=== PATIENT | female | born 1970 | race Caucasian/White ===

== ENCOUNTER 2017-12-28 16:49 | Emergency (ER) | payer SELFPAY ==
--- NOTE | 2017-12-28 17:29 | EDM.PDOC ---
ED HPI GENERAL MEDICAL PROBLEM - General Chief Complaint: Back Pain or Injury Stated Complaint: BACK PAIN Time Seen by Provider: 12/28/17 17:20 Source of Information: Reports: Patient History Limitations: Reports: No Limitations - History of Present Illness INITIAL COMMENTS - FREE TEXT/NARRATIVE: Ana comes into [facility] ED with R upper back pain that began shortly after 4 am today when getting off the commode. Pain was sharp, seemed to making breathing painful on the R backside, and has not improved with NSAIDs. There is a PMH of fibromyalgia, but no prior hx of back issues. There are no long tract sxs in the LEs. - Related Data Allergies Allergy/AdvReac Type Severity Reaction Status Date / Time No Known Allergies Allergy Verified 12/28/17 17:32 Home Meds: Home Meds NK [No Known Home Meds] 12/28/17 [History] Social & Family History - Living Situation & Occupation Living situation: Reports: Single Occupation: Unemployed ED ROS GENERAL - Review of Systems Review Of Systems: ROS reveals no pertinent complaints other than HPI. ED EXAM, UPPER BACK/NECK PAIN - Physical Exam Exam: See Below Exam Limited By: No Limitations General Appearance: Alert, WD/WN, Mild Distress, Obese Head Exam: Normocephalic Neck Exam: Non-Tender, Full Range of Motion, Normal Alignment Cardiovascular/Respiratory: Regular Rate, Rhythm, Normal Peripheral Pulses, Normal Breath Sounds GI/Abdominal: Normal Bowel Sounds, Soft, Non-Tender, No Organomegaly, No Distention, No Mass (Female) Exam: Deferred Rectal (Female) Exam: Deferred Back Exam: Normal Inspection, Decreased Range of Motion, Muscle Spasm (R periscapular mm and erector spina mm), Paraspinal Tenderness (R erector spinae mm) Extremities: Normal Inspection, Normal Range of Motion, Non-Tender Neurologic: fitness sales consultant II-XII nml As Tested, No Motor/Sensory Deficits, Alert, Normal Mood/Affect, Oriented x 3 Psychiatric: Normal Affect, Anxious Skin Exam: Normal Color, Warm/Dry Lymphatic: No Adenopathy Course - Vital Signs Text/Narrative:: Ana was not administered any meds during ED visit. Departure - Departure Time of Disposition: 17:30 Disposition: Home, Self-Care 01 Condition: Fair Clinical Impression: Muscle strain of right upper back Qualifiers: Encounter type: initial encounter Qualified Code(s): S29.012A - Strain of muscle and tendon of back wall of thorax, initial encounter - Discharge Information *PRESCRIPTION DRUG MONITORING PROGRAM REVIEWED*: Not Applicable *COPY OF PRESCRIPTION DRUG MONITORING REPORT IN PATIENT ERIKA: Not Applicable Instructions: Back Pain, Adult, [id number] Referrals: Alvarez Melvin MD [Primary Care Provider] - Forms: ED Department Discharge Care Plan Goals: Tramadol 1 tab every 6-8 hours as needed for pain Take Flexaril for muscle spasms - Problem List & Annotations (1) Muscle strain of right upper back SNOMED Code(s): 570327865 Code(s): S29.012A - STRAIN OF MUSCLE AND TENDON OF BACK WALL OF THORAX, INIT Status: Acute Current Visit: Yes Annotation/Comment:: I advised NSAIDs for pain, continue Flexeril 10 mg tabs for spasm, heat, gentle massage and stretches. Qualifiers: Encounter type: initial encounter Qualified Code(s): S29.012A - Strain of muscle and tendon of back wall of thorax, initial encounter - Problem List Review Problem List Initiated/Reviewed/Updated: Yes - Assessment/Plan Plan: Follow up with PCP if needed.
[2017-12-28 18:27] VITALS: BP 147/89
== END 2017-12-28 17:39 | disposition home or self-care (01) ==
LOC: FB.ED 16:49
DX: S29.012A Strain of muscle and tendon of back wall of thorax, initial encounter (principal); X58.XXXA Exposure to other specified factors, initial encounter
CPT/HCPCS: 99283

== ENCOUNTER 2021-01-14 21:34 | Emergency (ER) | payer MEDICAID ==
[2021-01-14] MEDS ORDERED: hydrOXYzine HCl 50 MG/ML SDV IM ONE (22:05)
[2021-01-14] MEDS ORDERED: Ketorolac 30 MG/ML SDV IM ONE (22:05)
--- NOTE | 2021-01-14 22:05 | EDM.PDOC ---
ED HPI GENERAL MEDICAL PROBLEM - General Stated Complaint: BLADDER INFECTION Time Seen by Provider: 01/14/21 21:35 Source of Information: Reports: Patient History Limitations: Reports: No Limitations - History of Present Illness INITIAL COMMENTS - FREE TEXT/NARRATIVE: Ana comes in with complaints of a UTI. She was given a script for Cephalexin,which she has ,but since 2 pm,she has had worsening pelvic pressure, dysuria. No hematuria ,fever, back pain or vomiting. 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 ED EXAM, GENERAL (PEDS) - Physical Exam Exam: See Below Exam Limited By: No Limitations General Appearance: WD/WN Cardiovascular: Normal Peripheral Pulses GI/Abdominal Exam: Normal Bowel Sounds, Soft, Tender (Pelvic area) Extremities: Normal Inspection Neurological: Alert, Oriented Course - Vital Signs Last Recorded V/S: Last Vital Signs Temp 99.5 F 01/14/21 21:55 Pulse 92 01/14/21 21:55 Resp 18 01/14/21 21:55 BP 145/69 H 01/14/21 21:55 Pulse Ox 98 01/14/21 21:55 - Orders/Labs/Meds Labs: Laboratory Tests 01/14/21 Range/Units 21:50 Urine Color Yellow (YELLOW) Urine Appearance Clear (CLEAR) Urine pH 5.0 (5.0-6.5) Ur Specific [place] 1.030 H (1.010-1.025) Urine Protein Negative (NEGATIVE) mg/dL Urine Glucose (UA) Normal (NORMAL) mg/dL Urine Ketones Negative (NEGATIVE) mg/dL Urine Occult Blood Trace (NEGATIVE) Urine Nitrite Negative (NEGATIVE) Urine Bilirubin Negative (NEGATIVE) Urine Urobilinogen Normal (NEGATIVE) mg/dL Ur Leukocyte Esterase Negative (NEGATIVE) Urine RBC 0-5 (0-5) Urine WBC 0-5 (0-5) Ur Squamous Epith Cells Few H (NS,R,O) Urine Bacteria Few H (NS) Meds: Medications Discontinued Medications Generic Name Dose Route Start Last Admin Trade Name Chuckq PRN Reason Stop Dose Admin Hydroxyzine HCl 100 mg 01/14/21 22:05 01/14/21 22:10 Hydroxyzine Hcl 50 Mg/Ml Sdv IM 01/14/21 22:06 100 mg ONETIME ONE Administration Ketorolac Tromethamine 60 mg 01/14/21 22:05 01/14/21 22:10 Ketorolac 30 Mg/Ml Sdv IM 01/14/21 22:06 60 mg ONETIME ONE Administration Departure - Departure Time of Disposition: 08:13 Disposition: Home, Self-Care 01 Condition: Good Clinical Impression: Pelvic pain - Discharge Information Instructions: Pelvic Pain, Female, [id number] Referrals: Alvarez Melvin MD [Primary Care Provider] - Forms: ED Department Discharge Additional Instructions: See PCP tomorrow and continue taking antibiotics as prescribed. - Problem List & Annotations (1) Pelvic pain SNOMED Code(s): 68949251 Code(s): R10.2 - PELVIC AND PERINEAL PAIN Status: Acute - Problem List Review Problem List Initiated/Reviewed/Updated: Yes - Assessment/Plan Plan: UA was negative. DC home
[2021-01-14 23:19] VITALS: BP 145/69; PULSE 92
== END 2021-01-14 22:25 | disposition home or self-care (01) ==
LOC: FB.ED 21:34
DX: R10.2 Pelvic and perineal pain (principal)
CPT/HCPCS: 81001; 96372; 99284; J1885; J3410

== ENCOUNTER 2021-01-15 11:42 | Emergency (ER) | payer MEDICAID ==
[2021-01-15] MEDS: Acetaminophen/oxyCODONE 325-5 MG Tab PO STA (12:41)
[2021-01-15] MEDS: Sodium Chloride 0.9% 10 ML Syringe FLUSH PRN (14:38)
[2021-01-15] MEDS: Sodium Chloride 0.9% 1,000 ML IV SCH ×2 (14:38→16:09)
[2021-01-15] MEDS: HYDROmorphone 2 MG/ML SDV IVPUSH STA (14:45)
--- NOTE | 2021-01-15 15:13 | EDM.PDOC ---
ED HPI GENERAL MEDICAL PROBLEM - General Stated Complaint: Abdominal pain Time Seen by Provider: 01/15/21 11:45 Source of Information: Reports: Patient History Limitations: Reports: No Limitations - History of Present Illness INITIAL COMMENTS - FREE TEXT/NARRATIVE: Patient is a 50 YO WF who presented to the ED because of LLQ,RLQ and suprapubic pain which started Tuesday and gradually got worse . The pain is sharp,constant,10/10 with associated diarrhea. There is no nausea,vomiting, fever, chills. No urinary symptoms. She is otherwise healthy except for obesety and osteoarthritis. 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: Musculoskeletal History: Reports: Fibromyalgia, Osteoarthritis - Past Surgical History HEENT Surgical History: Reports: Tonsillectomy GI Surgical History: Reports: Cholecystectomy Female Surgical History: Reports: Tubal Ligation Social & Family History - Family History Family Medical History: No Pertinent Family History - Caffeine Use Caffeine Use: Reports: Soda - Living Situation & Occupation Living situation: Reports: Single Occupation: Unemployed ED ROS GENERAL - Review of Systems Review Of Systems: See Below Constitutional: Reports: No Symptoms HEENT: Reports: No Symptoms Respiratory: Reports: No Symptoms Cardiovascular: Reports: No Symptoms Endocrine: Reports: No Symptoms GI/Abdominal: Reports: Abdominal Pain : Reports: No Symptoms Musculoskeletal: Reports: No Symptoms Skin: Reports: No Symptoms Neurological: Reports: No Symptoms Psychiatric: Reports: No Symptoms ED EXAM, GI/ABD - Physical Exam Exam: See Below Exam Limited By: No Limitations General Appearance: Alert, No Apparent Distress Ears: Normal External Exam, Normal Canal, Hearing Grossly Normal Nose: Normal Inspection, Normal Mucosa, No Blood Throat/Mouth: Normal Inspection, Normal Lips, Normal Teeth, Normal Gums, Normal Oropharynx Head: Atraumatic, Normocephalic Neck: Normal Inspection, Supple, Non-Tender, Full Range of Motion Respiratory/Chest: No Respiratory Distress, Lungs Clear, Normal Breath Sounds, No Accessory Muscle Use, Chest Non-Tender Cardiovascular: Normal Peripheral Pulses, Regular Rate, Rhythm, No Edema, No Gallop, No JVD, No Murmur, No Rub GI/Abdominal Exam: Normal Bowel Sounds, Soft, Other (tenderness over the LLQ/RLQ ,suprapubic area) Extremities: Normal Inspection, Normal Range of Motion, Non-Tender, No Pedal Edema, Normal Capillary Refill Neurological: Alert, Oriented, CN II-XII Intact, Normal Cognition Psychiatric: Normal Affect Course - Vital Signs Text/Narrative:: Lab and CT result was reviewed and discussed with patient Percocet 5 mg, 2 PO x1 Zosyn 4.5 gm IV x1 Dilaudid 2 mg IV x1 Case was discussed with Dr Adkins who want patient to be transferred to [place] for further care Code Status:Full Code Last Recorded V/S: Last Vital Signs Temp 36.6 C 01/15/21 11:42 Pulse 92 01/15/21 11:42 Resp 18 01/15/21 11:42 BP 125/73 01/15/21 11:42 Pulse Ox 97 01/15/21 11:42 - Orders/Labs/Meds Orders: Active Orders 24 hr Category Date Time Status Abdomen Pelvis wo Cont [CT] Stat Exams 01/15/21 12:29 Taken Piperacillin/Tazobactam [Zosyn] 4.5 gm Med 01/15/21 15:00 Active Sodium Chloride 0.9% [Normal Saline] 100 ml IV Q6H Sodium Chloride 0.9% [Normal Saline] 1,000 ml Med 01/15/21 14:30 Active IV ASDIRECTED Sodium Chloride 0.9% [Saline Flush] Med 01/15/21 14:30 Active 10 ml FLUSH ASDIRECTED PRN Saline Lock Insert [OM.PC] Routine Oth 01/15/21 14:30 Ordered Medication Orders Sodium Chloride (Normal Saline) 1,000 mls @ 999 mls/hr IV ASDIRECTED PEDRO Last Admin: 01/15/21 14:38 Dose: 999 mls/hr Documented by: ERIN Piperacillin Sod/Tazobactam (Sod 4.5 gm/ Sodium Chloride) 100 mls @ 200 mls/hr IV Q6H PEDRO Sodium Chloride (Sodium Chloride 0.9% 10 Ml Syringe) 10 ml FLUSH ASDIRECTED PRN PRN Reason: Keep Vein Open Last Admin: 01/15/21 14:38 Dose: 10 ml Documented by: ERIN Meds: Medications Generic Name Dose Route Start Last Admin Trade Name Frecatrina PRN Reason Stop Dose Admin Sodium Chloride 1,000 mls @ 999 mls/hr 01/15/21 14:30 01/15/21 14:38 Normal Saline IV 999 mls/hr ASDIRECTED PEDRO Administration Piperacillin Sod/Tazobactam 100 mls @ 200 mls/hr 01/15/21 15:00 Sod 4.5 gm/ Sodium Chloride IV Q6H PEDRO Sodium Chloride 10 ml 01/15/21 14:30 01/15/21 14:38 Sodium Chloride 0.9% 10 Ml Syringe FLUSH 10 ml ASDIRECTED PRN Administration Keep Vein Open Discontinued Medications Generic Name Dose Route Start Last Admin Trade Name Jailene PRN Reason Stop Dose Admin Hydromorphone HCl 2 mg 01/15/21 14:30 Hydromorphone 2 Mg/Ml Sdv IVPUSH 01/15/21 14:31 NOW STA Oxycodone/Acetaminophen 2 tab 01/15/21 12:29 01/15/21 12:41 Acetaminophen/Oxycodone 325-5 Mg Tab PO 01/15/21 12:30 2 tab NOW STA Administration Departure - Departure Time of Disposition: 15:00 Disposition: DC/Tfer to Acute Hospital 02 Condition: Good Clinical Impression: Diverticulitis of colon with perforation - Discharge Information Referrals: Alvarez Melvin MD [Primary Care Provider] - Forms: ED Department Discharge Sepsis Event Note (ED) - Evaluation Sepsis Screening Result: No Definite Risk - Focused Exam Vital Signs: Vital Signs Temp Pulse Resp BP Pulse Ox 01/15/21 11:42 36.6 C 92 18 125/73 97 - My Orders Last 24 Hours: My Active Orders 01/15/21 12:29 Abdomen Pelvis wo Cont [CT] Stat 01/15/21 14:30 Sodium Chloride 0.9% [Normal Saline] 1,000 ml IV ASDIRECTED Sodium Chloride 0.9% [Saline Flush] 10 ml FLUSH ASDIRECTED PRN Saline Lock Insert [OM.PC] Routine 01/15/21 15:00 Piperacillin/Tazobactam [Zosyn] 4.5 gm Sodium Chloride 0.9% [Normal Saline] 100 ml IV Q6H - Assessment/Plan Last 24 Hours: My Active Orders 01/15/21 12:29 Abdomen Pelvis wo Cont [CT] Stat 01/15/21 14:30 Sodium Chloride 0.9% [Normal Saline] 1,000 ml IV ASDIRECTED Sodium Chloride 0.9% [Saline Flush] 10 ml FLUSH ASDIRECTED PRN Saline Lock Insert [OM.PC] Routine 01/15/21 15:00 Piperacillin/Tazobactam [Zosyn] 4.5 gm Sodium Chloride 0.9% [Normal Saline] 100 ml IV Q6H
[2021-01-15] MEDS: Piperacillin/Tazobactam 4.5 GM in Sodium Chloride 0.9% 100 ML IV SCH (16:16)
[2021-01-15 19:30] VITALS: BP 139/82; PULSE 59
== END 2021-01-15 16:50 ==
LOC: FB.ED 11:42
DX: K57.20 Diverticulitis of large intestine with perforation and abscess without bleeding (principal)
CPT/HCPCS: 74176; 96365; 96375; 99285; A9270; J1170; J2543; J7030

== ENCOUNTER 2024-01-31 06:21 | Day surgery (SDC) | payer MEDICAID ==
[~2024-01-31 06:21] MED LIST: Sodium Chloride 0.9% 10 ML Syringe FLUSH PRN
[2024-01-31] MEDS ORDERED: Glycopyrrolate 0.2 MG/ML 5 ML MDV IV ONE (06:22)
[2024-01-31] MEDS ORDERED: Midazolam 1 MG/ML 2 ML SDV IV ONE (06:22)
[2024-01-31] MEDS ORDERED: Propofol 200 MG/20 ML SDV IV ONE (06:22)
[2024-01-31] MEDS ORDERED: Ketamine 500 mg/10 ML MDV IV ONE (06:22)
[2024-01-31] MEDS ORDERED: Phenylephrine 0.5% Nasal Spray 15 ML Bot NAS ONE (06:22)
[2024-01-31] MEDS: Lactated Ringers 1,000 ML IV SCH (07:11)
[2024-01-31] MEDS: Simethicone Drops 40 MG/0.6 ML 30 ML Bottle ONE (07:33)
[2024-01-31 10:13] VITALS: BP 121/94; PULSE 73
== END 2024-01-31 09:14 | disposition home or self-care (01) ==
LOC: FB.SDS 06:21
PROVIDERS: ATTEND Surgery
DX: Z12.11 Encounter for screening for malignant neoplasm of colon (principal); R19.5 Other fecal abnormalities; D12.6 Benign neoplasm of colon, unspecified; K57.30 Diverticulosis of large intestine without perforation or abscess without bleeding; J45.30 Mild persistent asthma, uncomplicated; E78.5 Hyperlipidemia, unspecified; E66.9 Obesity, unspecified; Z79.899 Other long term (current) drug therapy; Z87.891 Personal history of nicotine dependence
CPT/HCPCS: 00811; 45385; 88305; A9270; J1596; J2250; J2704; J3490; J7120

== ENCOUNTER 2024-04-17 15:22 | Emergency (ER) | payer MEDICAID ==
[2024-04-17] MEDS ORDERED: Apixaban 5 MG Tab PO ONE (15:23)
[2024-04-17 18:35] LABS: BASOPHILS PERCENT AUTO 0.2 % (0.2-1.5); EOSINOPHILS ABSOLUTE AUTO 0.3 x10-3/uL (0.0-0.8); EOSINOPHILS PERCENT AUTO 4.5 % (0.6-8.1); HEMATOCRIT 44.3 % (34.2-48.2); HEMOGLOBIN 15.3 g/dL (11.4-15.5); LYMPHOCYTES ABSOLUTE AUTO 1.6 x10-3/uL (1.0-4.4); LYMPHOCYTES PERCENT AUTO 24.2 % (18.4-52.1); MEAN CORPUSCULAR HEMOGLOBIN 31.8 pg (23.9-33.9); MEAN CORPUSCULAR HGB CONC 34.5 g/dL (31.9-34.8); MEAN CORPUSCULAR VOLUME 92.1 fL (76.7-100.5); MEAN PLATELET VOLUME 7.8 fL (7.1-12.4); MONOCYTES ABSOLUTE AUTO 0.3 x10-3/uL (0.3-1.0); MONOCYTES PERCENT AUTO 5.2 % (4.4-15.7); NEUTROPHILS ABSOLUTE AUTO 4.2 x10-3/uL (1.5-6.3); NEUTROPHILS PERCENT AUTO 65.9 % (30.8-76.2); PLATELET COUNT,PLT 345 x10(3)uL (151-488); RED BLOOD CELL COUNT 4.81 x10(6)uL (3.60-5.20); RED CELL DISTRIBUTION WIDTH 15.8 % (12.3-16.5); WHITE BLOOD CELL COUNT,WBC 6.4 x10-3/uL (3.0-10.3)
[2024-04-17] MEDS: Albuterol/Ipratropium 3.0-0.5 MG/3 ML Neb Soln NEB ONE (18:35)
[2024-04-17 18:37] LABS: BLOOD UREA NITROGEN,BUN 10 mg/dL (7-18); BUN/CREATININE RATIO 9.1 (9-20); CALCIUM 9.4 mg/dL (8.6-10.2); CARBON DIOXIDE,CO2 29 mmol/L (21-32); CHLORIDE,CL 104 mmol/L (100-110); CREATININE 1.1 mg/dL (0.55-1.02); EST CRCL DRUG DOSING (CG) 57.52 mL/min; ESTIMATED GFR 60 mL/min (>60); GLUCOSE RANDOM 87 mg/dL (80-116); POTASSIUM,K 3.9 mmol/L (3.5-5.3); SODIUM,NA 142 mmol/L (135-145)
[2024-04-17 18:43] LABS: A/G RATIO 0.9; ALANINE AMINOTRANSFERASE,ALT 26 U/L (12-36); ALBUMIN 3.6 g/dL (3.5-5.2); ALKALINE PHOSPHATASE 133 IU/L (56-112); ASPARTATE AMNIOTRANSFERASE,AST 24 IU/L (5-25); BILIRUBIN TOTAL 0.4 mg/dL (0.1-1.3); PROTEIN TOTAL,TP 7.6 g/dL (6.0-8.0)
[2024-04-17] MEDS: Iopamidol 755 Mg/ML 100 ML Bottle IV STA (18:54)
[2024-04-17] MEDS: Ketorolac 15 MG/ML SDV IVPUSH ONE (19:26)
[2024-04-17 20:43] VITALS: PULSE 89
[2024-04-17] MEDS ORDERED: cefTRIAXone 1 GM Vial IM ONE (21:03)
[2024-04-17] MEDS: Ketorolac 15 MG/ML SDV ONE (21:08)
[2024-04-17] MEDS: Apixaban 5 MG Tab PO STA ×2 (21:31→21:37)
[2024-04-17] MEDS: cefTRIAXone 1 GM Vial IVPUSH STA (21:32)
[2024-04-17 21:41] VITALS: BP 148/97
== END 2024-04-17 21:45 | disposition home or self-care (01) ==
LOC: FB.ED 15:22
DX: I26.94 Multiple subsegmental thrombotic pulmonary emboli without acute cor pulmonale (principal); J21.9 Acute bronchiolitis, unspecified; I10 Essential (primary) hypertension; E78.00 Pure hypercholesterolemia, unspecified; J45.909 Unspecified asthma, uncomplicated; E66.9 Obesity, unspecified; F17.210 Nicotine dependence, cigarettes, uncomplicated; Z90.49 Acquired absence of other specified parts of digestive tract; Z79.51 Long term (current) use of inhaled steroids; Z79.52 Long term (current) use of systemic steroids; Z79.01 Long term (current) use of anticoagulants; Z79.899 Other long term (current) drug therapy; Z68.24 Body mass index [BMI] 24.0-24.9, adult
CPT/HCPCS: 36415; 71275; 80053; 85025; 85379; 96374; 96375; 99285; A9270; J0696; J1885; Q9967; J7620